=== PATIENT | male | born 1960 | race Caucasian/White ===

== ENCOUNTER 2018-11-16 06:24 | Day surgery (SDC) | payer MEDICARE, MEDICAID ==
[~2018-11-16 06:24] MED LIST: Acetaminophen TAB* 325 MG PO PRN; Buffered Lidocaine 0.9% SYRIN* 5 ML/SYR SYRINGE INTRADERM ONE; mitoMYcin PWD* 0.2 MG in Sterile Water for Inj* 1 ML OPHTHALMIC SCH
[2018-11-16] MEDS ORDERED: Midazolam* 1 MG/ML 2 ML VIAL (2 MG) ONE ×2 (07:18→07:50)
[2018-11-16 08:21] VITALS: BP 136/80
--- NOTE | 2018-11-16 11:10 | OP ---
OPERATIVE NOTE: DATE OF OPERATION: 11/16/18 DATE OF : 64 SURGEON: Gabriel Mclaughlin M.D. ANESTHESIA: Local with MAC. PREOPERATIVE DIAGNOSIS: Open angle glaucoma, right eye. POSTOPERATIVE DIAGNOSIS: Open angle glaucoma, right eye. OPERATIVE PROCEDURE: XEN stent, right eye. COMPLICATIONS: None. DESCRIPTION OF PROCEDURE: The patient was given 2% lidocaine with epinephrine drops and was prepped and draped in the usual sterile fashion. Lid speculum was placed. Paracentesis made at the 11 o'katherine ck position with a 75 blade. Anterior chamber irrigated with 1% non-preservative intracameral lidoca ine followed by ProVisc instilled into the anterior chamber. Clear corneal 1.8-mm incision was made at the 7 o'clock position. XEN stent placed at the 1 o'clock position without difficulty and mitomyc in-c 0.2 mg/mL injected near the site at the 1 o'clock position and then anterior chamber irrigated w ith balanced salt solution. [id number]/[facility] #: [id number]
[2018-11-16] MEDS ORDERED: Povidone Iodine 5% OPTH* 30 ML BTL ONE (12:55)
[2018-11-16] MEDS ORDERED: Neomycin/Polymy/Dex OPTH.SUSP* MAXITROL 0.1% 5 ML ONE (12:55)
[2018-11-16] MEDS ORDERED: Proparacaine 0.5% OPHTH.SOL* 15 ML BTL ONE (12:55)
[2018-11-16] MEDS ORDERED: Lidocaine 1%* 5 ML VIAL ONE (12:55)
[2018-11-16] MEDS ORDERED: Lidocaine 2% EPI 1:200000 MPF*10-20 ML VIAL ONE (12:55)
== END 2018-11-16 08:30 | disposition home or self-care (01) ==
LOC: OREAST 06:24
PROVIDERS: ATTEND Specialist
DX: H40.1113 Primary open-angle glaucoma, right eye, severe stage (principal); Q11.1 Other anophthalmos; H18.11 Bullous keratopathy, right eye; Z88.0 Allergy status to penicillin; F17.210 Nicotine dependence, cigarettes, uncomplicated; F41.9 Anxiety disorder, unspecified
CPT/HCPCS: A9270-GY; C1725; J2250; J9280